=== PATIENT | male | born 1995 | race Caucasian/White ===

== ENCOUNTER 2018-05-19 14:45 | Emergency (ER) | payer SELFPAY ==
[~2018-05-19] VITALS: Ht 177.8 cm; Wt 77.1 kg
[2018-05-19 14:45] VITALS: BP 139/85
[2018-05-19] MEDS ORDERED: AZIT250T PO (15:22)
[2018-05-19] MEDS ORDERED: HYDR115S2 PO (15:22)
[2018-05-19] MEDS ORDERED: BENZ100C PO (15:22)
--- NOTE | 2018-05-19 15:22 | PHYS DOC ---
Past History Smoking: Cigarettes Adult General Chief Complaint Chief Complaint: SORE THROAT HPI HPI Patient is a 23 year old male who presents with complaining of sore throat. Patient complaining of sore throat or nasal congestion and sinus pain, nonproductive cough and fever up to 100 for the last 4 days and states he had sick contacts at his work. Patient denies diarrhea, vomiting, urinary symptoms, chest pain, focal neuro deficit. Review of Systems Review of Systems Constitutional: Reports fever[] Eyes: Denies change in visual acuity, redness, or eye pain [] HENT: Reports nasal congestion and sore throat Respiratory: Reports cough Cardiovascular: No additional information not addressed in HPI [] GI: Denies abdominal pain, nausea, vomiting, bloody stools or diarrhea [] : Denies dysuria or hematuria [] Musculoskeletal: Denies back pain or joint pain [] Integument: Denies rash or skin lesions [] Neurologic: Denies headache, focal weakness or sensory changes [] Endocrine: Denies polyuria or polydipsia [] All other systems were reviewed and found to be within normal limits, except as documented in this note. Physical Exam Physical Exam Constitutional: Well developed, well nourished, mild distress, non-toxic appearance. [] HENT: Normocephalic, atraumatic, bilateral external ears normal, oropharynx moist, pharyngeal erythema and mild erythema, no oral exudates, nose normal. [] Eyes: PERRLA, EOMI, conjunctiva normal, no discharge. [] Neck: Normal range of motion, no tenderness, supple, no stridor. [] Cardiovascular:Heart rate regular rhythm, no murmur [] Lungs & Thorax: Bilateral breath sounds clear to auscultation [] Abdomen: Bowel sounds normal, soft, no tenderness, no masses, no pulsatile masses. [] Skin: Warm, dry, no erythema, no rash. [] Back: No tenderness, no CVA tenderness. [] Extremities: No tenderness, no cyanosis, no clubbing, ROM intact, no edema. [] Neurologic: Alert and oriented X 3, normal motor function, normal sensory function, no focal deficits noted. [] Psychologic: Affect normal, judgement normal, mood normal. [] EKG EKG [] Radiology/Procedures Radiology/Procedures [] Course & Med Decision Making Course & Med Decision Making discharge: I've spoken with the patient and/or caregivers. I've explained the patient's condition, diagnosis and treatment plan based on information available to me at this time. I've answered the patient's and/or caregivers questions and addressed any concerns. The patient and/or caregivers have a good understanding the patient's diagnosis, condition and treatment plan as can be expected at this point. Vital signs have been stabilized. The patient's condition is stable for discharge from the emergency department. The patient will pursue further outpatient evaluation with her primary care provider or other designated consulting physician as outlined in the discharge instructions. Patient and/or caregivers are agreeable to this plan of care and follow-up instructions have been explained in detail. The patient and/or caregivers have received these instructions in written format and expressed understanding of these discharge instructions. The patient and her caregivers are aware that if any significant change in condition or worsening of symptoms should prompt him to immediately return to this of the closest emergency department. If an emergent department is not readily available I would encourage him to call 911. Analiaon Disclaimer Dragon Disclaimer This electronic medical record was generated, in whole or in part, using a voice recognition dictation system. Departure Departure: Impression: Primary Impression: Upper respiratory infection Additional Impressions: Tobacco abuse Tobacco abuse counseling Disposition: HOME, SELF-CARE (at 1518) Condition: STABLE Referrals: TANG ZAZUETA (PCP) Patient Instructions: Smoking Cessation, Tips For Success, Upper Respiratory Infection, Adult Additional Instructions: Drink plenty of liquids Follow-up with your primary care physician in 3-5 days Return to ER if not getting better Scripts Azithromycin (ZITHROMAX) 250 Mg Tablet 1 PKG PO UD for infection, #1 PKG Prov: CAROLINE REED MD 05/19/18 Hydrocodone/Chlorphen P-Stirex (Tussionex Pennkinetic Susp) 115 Ml Jillian.er.12h 5 ML PO BID for cough and congestion, #60 ML Prov: CAROLINE REED MD 05/19/18 Benzonatate (TESSALON PERLE) 100 Mg Capsule 1 CAP PO TID for cough, #21 CAP Prov: CARLOINE REED MD 05/19/18 Problem Qualifiers CAROLINE REED MD May 19, 2018 15:22
== END 2018-05-19 15:30 | disposition home or self-care (01) ==
LOC: ER 14:45
DX: J06.9 Acute upper respiratory infection, unspecified (principal); F17.210 Nicotine dependence, cigarettes, uncomplicated; Z71.6 Tobacco abuse counseling
CPT/HCPCS: 87070; 87880; 99283

== ENCOUNTER 2018-07-14 15:20 | Inpatient (IN) | payer SELFPAY ==
[~2018-07-14] VITALS: Ht 177.8 cm; Wt 85.4 kg
[~2018-07-14 15:20] MED LIST: AZIT250T PO; BENZ100C PO; HYDR115S2 PO
[2018-07-14] MEDS ORDERED: IV NORMAL SALINE 1,000ML 1,000 ML IV ONE (16:15)
[2018-07-14] MEDS ORDERED: ONDANSETRON PF 4 MG/2 ML VIAL. IV ONE (16:15)
--- NOTE | 2018-07-14 16:24 | PHYS DOC ---
Past History Past Medical History: No Pertinent History Past Surgical History: Cholecystectomy Smoking: Cigarettes Alcohol Use: Occasionally Drug Use: None Adult General Chief Complaint Chief Complaint: ABDOMINAL PAIN HPI HPI 23-year-old male presents with abdominal pain. The patient was in the shower and it an upper abdominal pain that was severe and sharp. He states that it hurt enough that it made him yell out in pain. His roommate was home and tried to help the patient. The pain subsided somewhat after several minutes. It is now , and gone multiple times. The patient had this happen about a year ago when he had a ruptured gallbladder. He had emergently removed at that time. He denies feeling ill recently. Denies fever or chills. He denies recent trauma Review of Systems Review of Systems Constitutional: Denies fever or chills [] Eyes: Denies change in visual acuity, redness, or eye pain [] HENT: Denies nasal congestion or sore throat [] Respiratory: Denies cough or shortness of breath [] Cardiovascular: No additional information not addressed in HPI [] GI: Abdominal pain [] : Denies dysuria or hematuria [] Musculoskeletal: Denies back pain or joint pain [] Integument: Denies rash or skin lesions [] Neurologic: Denies headache, focal weakness or sensory changes [] Endocrine: Denies polyuria or polydipsia [] All other systems were reviewed and found to be within normal limits, except as documented in this note. Current Medications Current Medications Current Medications Medications (Trade) Dose Ordered Sig/Orlin Start Time Stop Time Status Last Admin Dose Admin Ondansetron HCl (Zofran) 4 mg 1X ONCE 07/14/18 16:15 07/14/18 16:16 DC Sodium Chloride 1,000 ml @ 1,000 mls/hr 1X ONCE 07/14/18 16:15 07/14/18 17:14 Allergies Allergies Allergies Coded Allergies Type Severity Reaction Last Updated Verified No Known Drug Allergies 05/19/18 No Physical Exam Physical Exam Constitutional: Well developed, well nourished, no acute distress, non-toxic appearance. [] HENT: Normocephalic, atraumatic, bilateral external ears normal, oropharynx moist, no oral exudates, nose normal. [] Eyes: PERRLA, EOMI, conjunctiva normal, no discharge. [] Neck: Normal range of motion, no tenderness, supple, no stridor. [] Cardiovascular:Heart rate regular rhythm, no murmur [] Lungs & Thorax: Bilateral breath sounds clear to auscultation [] Abdomen: Bowel sounds normal, soft, mild tenderness epigastric area[] Skin: Warm, dry, no erythema, no rash. [] Back: No tenderness, no CVA tenderness. [] Extremities: No tenderness, no cyanosis, no clubbing, ROM intact, no edema. [] Neurologic: Alert and oriented X 3, normal motor function, normal sensory function, no focal deficits noted. [] Psychologic: Affect normal, judgement normal, mood normal. [] EKG EKG [] Radiology/Procedures Radiology/Procedures [] Impressions: CT ABD PELV W/ IV CONTRST ONLY Indication: Right upper quadrant abdominal pain, pancreatitis Technique: Postcontrast CT imaging was performed of the abdomen and pelvis, multiplanar reconstruction images submitted. No oral contrast was given. One or more of the following individualized dose reduction techniques were utilized for this examination: 1. Automated exposure control 2. Adjustment of the mA and/or kV according to patient size 3. Use of iterative reconstruction technique. Comparison: None Findings: There is no abnormality of the limited visualized lung bases. No focal abnormality is identified of the liver, spleen, pancreas. Gallbladder has been removed. Both kidneys enhance, no hydronephrosis. Evaluation of bowel is limited without oral contrast, no bowel dilatation, free fluid, free air. Normal appendix is visualized. Urinary bladder is somewhat distended. There are some scattered small retroperitoneal nodes, also mesenteric nodes with the largest about 1 cm short axis dimension in the right abdomen. IMPRESSION: 1. No significant acute abnormality is identified by CT. There has been cholecystectomy. Imaging findings of pancreatitis can be delayed relative to laboratory abnormality. There is no CT evidence of acute appendicitis. 2. Urinary bladder is somewhat distended. 3. There are nonspecific mesenteric nodes, largest considered borderline in size in the right abdomen. Electronically signed by: Sathya Doty MD (07/14/2018 6:36 PM) [facility] DICTATED AND SIGNED BY: SATHYA DOTY MD DATE: 07/14/18 1834 CC: NISH MENDOZA DO; PCP,NO Course & Med Decision Making Course & Med Decision Making Pertinent Labs and Imaging studies reviewed. (See chart for details) Patient's labs are significant for a lipase of 708. His CT scan is pending. Discussed the patient with Dr. Martinez and he has agreed to admit the patient for observation and trending of his lipase. [] Dragon Disclaimer Dragon Disclaimer This electronic medical record was generated, in whole or in part, using a voice recognition dictation system. Departure Departure: Impression: Primary Impression: Pancreatitis Disposition: ADMITTED INPATIENT Condition: STABLE Referrals: PCP,NO (PCP) Problem Qualifiers Primary Impression: Pancreatitis Chronicity: acute Pancreatitis type: unspecified pancreatitis type Acute pancreatitis complication: unspecified Qualified Codes: K85.90 - Acute pancreatitis without necrosis or infection, unspecified NISH MENDOZA DO Jul 14, 2018 16:24
[2018-07-14 16:28] LABS: BASO % 0 % (0-3); EOS % 0 % (0-3); HEMATOCRIT 45.6 % (39.0-53.0); HEMOGLOBIN 15.4 g/dL (13.0-17.5); LYMPH # 1.6 x10^3/uL (1.0-4.8); LYMPH % 9 % (24-48); MEAN CORPUSCULAR HEMOGLOBIN 31 pg (25-35); MEAN CORPUSCULAR HGB CONC 34 g/dL (31-37); MEAN CORPUSCULAR VOLUME 92 fL (79-100); MONO # 1.1 x10^3/uL (0.0-1.1); MONO % 7 % (0-9); NEUT % 84 % (31-73); PLATELET COUNT 378 x10^3/uL (140-400); RED BLOOD COUNT 4.97 x10^6/uL (4.30-5.70); RED CELL DISTRIBUTION WIDTH 12.9 % (11.5-14.5); WHITE BLOOD COUNT 16.7 x10^3/uL (4.0-11.0)
[2018-07-14] MEDS ORDERED: KETOROLAC 30 MG/ML VIAL. IV ONE (16:30)
[2018-07-14 16:44] LABS: ALBUMIN/GLOBULIN RATIO 0.9 (1.0-1.7); CALCIUM 9.1 mg/dL (8.5-10.1); CREATININE 0.9 mg/dL (0.7-1.3); GFR 106.5; POTASSIUM 3.7 mmol/L (3.5-5.1); TOTAL BILIRUBIN 0.7 mg/dL (0.2-1.0); TOTAL PROTEIN 8.7 g/dL (6.4-8.2)
[2018-07-14 17:14] LABS: BACTERIA,URINE 0 /HPF (0-FEW); BILIRUBIN,URINE NEG (NEG); CLARITY,URINE CLEAR; COLOR,URINE YELLOW; GLUCOSE,URINE NEG (NEG); NITRITE,URINE NEG (NEG); RBC,URINE RARE /HPF (0-2); UROBILINOGEN,URINE 0.2 mg/dL (0.2 mg/dL); WBC,URINE 0 /HPF (0-4)
[2018-07-14 17:17] LABS: % BANDS 2 % (0-9); % BASOS 0 % (0-3); % EOS 0 % (0-5); % LYMPHS 14 % (24-48); % MONOS 3 % (0-10); % SEGS 81 % (35-66); PLT ESTIMATE ADEQUATE (ADEQUATE)
[2018-07-14] MEDS ORDERED: IOHEXOL 300 MG/ML 75 ML VIAL. IV ONE (17:45)
[2018-07-14] MEDS ORDERED: MORPHINE SULFATE 2 MG/ML DISP.SYRIN. IV PRN (18:15)
[2018-07-14] MEDS ORDERED: IV DEXTROSE 10% 1,000 ML IV ONE (18:15)
[2018-07-14] MEDS ORDERED: ONDANSETRON PF 4 MG/2 ML VIAL. IV PRN (18:15)
[2018-07-14] MEDS ORDERED: ACETAMINOPHEN 325 MG TABLET PO PRN (18:15)
--- NOTE | 2018-07-14 18:39 | RAD ---
CT ABD PELV W/ IV CONTRST ONLY Indication: Right upper quadrant abdominal pain, pancreatitis Technique: Postcontrast CT imaging was performed of the abdomen and pelvis, multiplanar reconstruction images submitted. No oral contrast was given. One or more of the following individualized dose reduction techniques were utilized for this examination: 1. Automated exposure control 2. Adjustment of the mA and/or kV according to patient size 3. Use of iterative reconstruction technique. Comparison: None Findings: There is no abnormality of the limited visualized lung bases. No focal abnormality is identified of the liver, spleen, pancreas. Gallbladder has been removed. Both kidneys enhance, no hydronephrosis. Evaluation of bowel is limited without oral contrast, no bowel dilatation, free fluid, free air. Normal appendix is visualized. Urinary bladder is somewhat distended. There are some scattered small retroperitoneal nodes, also mesenteric nodes with the largest about 1 cm short axis dimension in the right abdomen. IMPRESSION: 1. No significant acute abnormality is identified by CT. There has been cholecystectomy. Imaging findings of pancreatitis can be delayed relative to laboratory abnormality. There is no CT evidence of acute appendicitis. 2. Urinary bladder is somewhat distended. 3. There are nonspecific mesenteric nodes, largest considered borderline in size in the right abdomen. Electronically signed by: Josué Coy MD (07/14/2018 6:36 PM) [facility]
[2018-07-14 19:34] VITALS: BP 140/80
[2018-07-14] MEDS: POTASSIUM CL 20MEQ D5-0.45NACL 1,000 ML IV SCH (20:44)
[2018-07-14] MEDS ORDERED: MORPHINE SULFATE 4 MG/ML DISP.SYRIN. IV PRN (21:30)
[2018-07-14 22:44] VITALS: BP 133/88
[2018-07-14] MEDS: NICOTINE 14MG PATCH. TD SCH (23:07)
[2018-07-15] MEDS: MORPHINE SULFATE 4 MG/ML DISP.SYRIN. IV PRN ×2 (04:49→09:52)
[2018-07-15 05:35] VITALS: BP 106/70
[2018-07-15 07:00] LABS: ALBUMIN 3.4 g/dL (3.4-5.0); ALBUMIN/GLOBULIN RATIO 0.8 (1.0-1.7); CALCIUM 8.6 mg/dL (8.5-10.1); CREATININE 0.8 mg/dL (0.7-1.3); POTASSIUM 3.8 mmol/L (3.5-5.1); TOTAL BILIRUBIN 0.7 mg/dL (0.2-1.0); TOTAL PROTEIN 7.5 g/dL (6.4-8.2)
[2018-07-15 07:01] LABS: BASO % 1 % (0-3); EOS # 0.1 x10^3/uL (0.0-0.7); EOS % 2 % (0-3); HEMATOCRIT 42.9 % (39.0-53.0); HEMOGLOBIN 14.5 g/dL (13.0-17.5); LYMPH # 1.9 x10^3/uL (1.0-4.8); LYMPH % 30 % (24-48); MEAN CORPUSCULAR HEMOGLOBIN 31 pg (25-35); MEAN CORPUSCULAR HGB CONC 34 g/dL (31-37); MEAN CORPUSCULAR VOLUME 93 fL (79-100); MONO # 0.6 x10^3/uL (0.0-1.1); MONO % 9 % (0-9); NEUT # 3.6 x10^3uL (1.8-7.7); NEUT % 58 % (31-73); PLATELET COUNT 341 x10^3/uL (140-400); RED BLOOD COUNT 4.64 x10^6/uL (4.30-5.70); RED CELL DISTRIBUTION WIDTH 12.9 % (11.5-14.5); WHITE BLOOD COUNT 6.2 x10^3/uL (4.0-11.0)
[2018-07-15] MEDS: NICOTINE 14MG PATCH. TD SCH (07:19)
[2018-07-15] MEDS: POTASSIUM CL 20MEQ D5-0.45NACL 1,000 ML IV SCH (07:19)
[2018-07-15 11:29] VITALS: BP 126/72
[2018-07-15 15:56] VITALS: BP 134/96
--- NOTE | 2018-07-15 16:25 | HP ---
ADMIT DATE: 07/14/2018 HISTORY OF PRESENT ILLNESS: The patient is a 23-year-old male patient who presented to the Emergency Room with abdominal pain. He apparently was in the shower and started complaining of severe sharp pain in his right upper quadrant. The pain was severe and his roommate was home and tried to help the patient. The pain subsided somewhat after several minutes and he stated that this type of pain happened about a year ago and at that time, his gallbladder was inflamed and has had Emergency and underwent an emergency cholecystectomy. He was evaluated in the Emergency Room and his serum amylase was slightly elevated at 706. He has also slightly elevated liver enzymes with an AST and ALT slightly elevated at 135 and 100. His white cell count was slightly elevated at 16,700. His urinalysis was essentially unremarkable. There was moderate amount of blood, negative for nitrite and leukocyte esterase. There are no RBCs, no WBCs. He has had a CT scan of the abdomen and pelvis, which showed that there is no abnormality in the limited visualized lung bases. No focal abnormality identified in the liver, spleen, pancreas; gallbladder has been removed. Both kidneys enhances with no hydronephrosis and the bowel evaluation was limited without oral contrast. No bowel dilatation or free fluid or free air. His appendix was normal. The urinary bladder is somewhat distended or some scattered small retroperitoneal nodes and also mesenteric nodes with the largest about 1 cm short axis dimension in the right abdomen. As he has slightly elevated lipase, decision was made to admit him for observation and was kept n.p.o. PAST MEDICAL HISTORY: Unremarkable. PAST SURGICAL HISTORY: Significant for bilateral myringotomy and cholecystectomy. ALLERGIES: He has no known drug allergies. MEDICATIONS: He is currently on no medication. FAMILY HISTORY: He has 1 younger brother and healthy and both parents are alive and healthy. SOCIAL HISTORY: Single; works in a restaurant; studying for degree of [employer]; smokes one half to one pack a day; drinks twice a week and he drinks half a bottle of whiskey. Denied any IV drug abuse. PHYSICAL EXAMINATION: GENERAL: On arrival to the Emergency Room, he looked well and was clearly in no apparent respiratory distress. No pallor, jaundice, cyanosis, or thyromegaly. No jugular venous distension. No lower limb edema. VITAL SIGNS: His heart rate was 76, blood pressure was 133/88, temperature was 98.4, respiratory rate was 18 and oxygen saturation was 98%. HEAD, EYES, EARS, NOSE, AND THROAT: Showed normocephalic, atraumatic. NECK: Supple. HEART: Showed normal first and second heart sounds. No gallop, rub or murmur. CHEST: Clear to auscultation. No crepitation or rhonchi. ABDOMEN: Distended, soft, tenderness mostly in the right upper quadrant. No guarding or rigidity. No organomegaly. All hernial orifices intact. Bowel sounds normal. NEUROLOGIC: He was awake, alert, responding appropriately. Cranial nerves are intact. EXTREMITIES: He moves extremities without difficulty. PSYCHOLOGIC: His affect and judgment as well as the mood was normal. ASSESSMENT AND PLAN: He was admitted with acute pancreatitis. He was started on IV fluid, IV pain medication and antiemetic. We will monitor him closely and repeat his labs in the morning and if normalized, we will start him on a clear liquid diet and advance as tolerated. OSCAR WARREN MD DR: MAN/gay JOB#: [id number] / [id number]
--- NOTE | 2018-07-15 19:52 | DS ---
DATE OF DISCHARGE: 07/15/2018 HOSPITAL COURSE: The patient is a 23-year-old male patient, who presented to Emergency Room with complaint of right upper quadrant pain. He was extensively investigated. His serum lipase was slightly elevated. His liver enzymes also slightly elevated. He was kept n.p.o. and his pain has largely subsided by the time I saw him. His lab work showed that his white cell count is down from 16,000 to 6200 and his serum lipase came down from 700 to 104. His liver enzymes were slightly elevated, AST of 135, ALT of 100 that came down to 51 and 81. His diet was advanced and he is tolerating his food without any difficulty and a decision was made to discharge him home. I have had a lengthy discussion about drinking alcohol all of his presentation is probably manifestation of alcohol abuse with pancreatitis as well as transaminitis. He smokes and also I leave it to that and he was counseled for that given his younger age and a decision was made to discharge him home. He is currently on no medication. PHYSICAL EXAMINATION: GENERAL: When I saw him this afternoon, he looked well and was clearly in no apparent respiratory distress. No pallor, jaundice, cyanosis, or thyromegaly. No jugular venous distension. No lower limb edema. VITAL SIGNS: His heart rate was 89, blood pressure 134/96, temperature was 98.5, respiratory rate 20 and oxygen saturation was 97% on room air. HEAD, EYES, EARS, NOSE AND THROAT: Showed normocephalic, atraumatic. NECK: Supple. HEART: Normal first and second heart sounds with no gallop, rub or murmur. CHEST: Clear to auscultation. No crepitation or rhonchi. ABDOMEN: Distended, soft, nontender. NEUROLOGIC: He is awake, alert, responding appropriately. EXTREMITIES: All cranial nerves intact. He moves extremities without difficulty. LABORATORY DATA: Showed a white cell count of 6200, hemoglobin 14.5, hematocrit 42, MCV 93 and platelet count of 341,000. His chemistry showed a serum sodium 142, potassium 3.8, chloride 104, bicarbonate 31, anion gap of 7, BUN 9, creatinine 0.8. Estimated GFR was 122 mL per minute. His glucose was 95, calcium was 8.6. Total bilirubin and alkaline phosphatase are normal. AST, ALT are slightly elevated, but trending down. His total protein was 7.5, albumin 3.4 and lipase was 104. FINAL DISCHARGE DIAGNOSES: Probably alcohol-induced pancreatitis and alcohol-induced transaminitis. OSCAR WARREN MD DR: MAN/gay JOB#: [id number] / [id number]
== END 2018-07-15 18:45 | disposition home or self-care (01) | DRG 440 ==
LOC: ER 15:20 → 1 SOUTH 18:11
PROVIDERS: ADMIT Internal Medicine; ATTEND Internal Medicine
DX: K85.20 Alcohol induced acute pancreatitis without necrosis or infection (principal); F17.210 Nicotine dependence, cigarettes, uncomplicated; F10.10 Alcohol abuse, uncomplicated; Z90.49 Acquired absence of other specified parts of digestive tract
CPT/HCPCS: 36415; 74177; 80053; 81001; 83690; 85007; 85025; 96374; J1885; J2270; J2405; Q9967; 99285-25; J7030

== ENCOUNTER 2019-04-07 09:50 | Emergency (ER) | payer OTHER ==
[~2019-04-07] VITALS: Ht 177.8 cm; Wt 85.3 kg
[2019-04-07] MEDS ORDERED: ONDANSETRON PF 4 MG/2 ML VIAL. IVP ONE (10:30)
[2019-04-07 10:42] LABS: BASO % 0 % (0-3); EOS # 0.1 x10^3/uL (0.0-0.7); EOS % 1 % (0-3); HEMOGLOBIN 15.7 g/dL (13.0-17.5); LYMPH # 1.4 x10^3/uL (1.0-4.8); LYMPH % 18 % (24-48); MEAN CORPUSCULAR HEMOGLOBIN 31 pg (25-35); MEAN CORPUSCULAR HGB CONC 34 g/dL (31-37); MEAN CORPUSCULAR VOLUME 91 fL (79-100); MONO # 0.7 x10^3/uL (0.0-1.1); MONO % 9 % (0-9); NEUT # 5.7 x10^3uL (1.8-7.7); NEUT % 72 % (31-73); PLATELET COUNT 367 x10^3/uL (140-400); RED BLOOD COUNT 5.07 x10^6/uL (4.30-5.70); RED CELL DISTRIBUTION WIDTH 12.9 % (11.5-14.5); WHITE BLOOD COUNT 7.9 x10^3/uL (4.0-11.0)
[2019-04-07] MEDS ORDERED: IOHEXOL 300 MG/ML 75 ML VIAL. IV ONE (10:45)
[2019-04-07 10:57] LABS: ALBUMIN 3.9 g/dL (3.4-5.0); ALBUMIN/GLOBULIN RATIO 0.9 (1.0-1.7); CALCIUM 9.1 mg/dL (8.5-10.1); GFR 93.4; POTASSIUM 4.1 mmol/L (3.5-5.1); TOTAL BILIRUBIN 0.4 mg/dL (0.2-1.0); TOTAL PROTEIN 8.4 g/dL (6.4-8.2)
[2019-04-07] MEDS ORDERED: MORPHINE SULFATE 4 MG/ML DISP.SYRIN. ONE (11:31)
[2019-04-07] MEDS ORDERED: MORPHINE SULFATE 10 MG/ML SYRINGE. IV ONE (11:45)
[2019-04-07] MEDS ORDERED: MORPHINE SULFATE 4 MG/ML DISP.SYRIN. IV ONE (11:45)
--- NOTE | 2019-04-07 11:47 | RAD ---
CT HEAD AND CERVICAL SPINE WO Indication: Fall from 20 feet. Exposure: One or more of the following individualized dose reduction techniques were utilized for this examination: 1. Automated exposure control 2. Adjustment of the mA and/or kV according to patient size 3. Use of iterative reconstruction technique. Technique: Standard imaging without intravenous contrast. Head: No evidence of acute infarct cranial hemorrhage, mass effect, midline shift or abnormal extra-axial fluid collection. Tamayo-white matter distinction is intact. Ventricles and sulci are symmetric. Orbits appear unremarkable. No large scalp hematoma. Partially visualized sinuses are clear. Mastoids and auditory canals are clear. IMPRESSION: No evidence of acute intracranial hemorrhage. Cervical spine: Visualized skull base appears grossly intact. Ring of C1 is intact. Cervico-occipital junction is intact. C1 and C2 relationship is symmetric. Vertebral body height is intact. No evidence of acute fracture. No bone destruction. No significant facet joint widening or locked facet joint. Disc spaces are maintained. No evidence of significant subluxation. Prevertebral soft tissues demonstrate no significant swelling or hematoma. No evidence of thyroid mass. Lung apices are grossly clear. Note there is some prominence of adenoidal tissue and sublingual tonsil. Nonspecific, this could be reactive or inflammatory. IMPRESSION: 1. No evidence of acute fracture or subluxation. 2. Question mild tonsillar enlargement. Electronically signed by: Fausto Castillo MD (04/07/2019 11:24 AM) [id number]
[2019-04-07] MEDS ORDERED: IV NORMAL SALINE 1,000ML 1,000 ML IV ONE (12:00)
--- NOTE | 2019-04-07 12:27 | RAD ---
CT THORACIC SPINE WO CONTRAST, CT LUMBAR SPINE WO CONTRAST, CT CHEST ABD PELVIS W/CONTRAST Indication: Fall from 20 feet Technique: Postcontrast CT imaging was performed of the chest, abdomen, pelvis, multiplanar reconstruction images submitted. Noncontrast CT imaging was performed of the thoracic and lumbar spine. One or more of the following individualized dose reduction techniques were utilized for this examination: 1. Automated exposure control 2. Adjustment of the mA and/or kV according to patient size 3. Use of iterative reconstruction technique. Comparison: July 14, 2017 CT abdomen pelvis exam, no previous chest exam available CHEST: Findings: There is no pneumothorax, pleural or pericardial effusion, infiltrate, evidence of pulmonary contusion. Major airways are patent. Thoracic aortic caliber is within normal limits without intraluminal flap or adjacent fluid collection/hematoma. No displaced acute rib fracture is identified. IMPRESSION: 1. No acute abnormality is identified of the chest. Abdomen pelvis FINDINGS: No acute abnormality is identified of the liver, spleen, pancreas. There is no adrenal nodularity. There has been cholecystectomy. Both kidneys enhance, no hydronephrosis or adjacent fluid collection. Accurate evaluation of bowel is limited without oral contrast. Bowel is not significantly dilated. There is no free fluid or free air. There are again several nonspecific mesenteric nodes, largest right lower quadrant about 1.3 cm short axis dimension although present previously, very slightly larger as previously about 1.1 cm short axis dimension. IMPRESSION: 1. No acute abnormality is identified of the abdomen or pelvis. 2. There are again several nonspecific mesenteric nodes, dominant right lower quadrant mesenteric node very slightly larger than previously. Thoracic spine FINDINGS: Thoracic vertebral body stature and AP alignment are maintained. There is no significant osseous thoracic spinal stenosis. No acute thoracic spine fracture is identified. There is mild superior thoracic levoscoliosis. IMPRESSION: 1. No acute thoracic spine fracture is identified. Lumbar spine FINDINGS: Lumbar vertebral body stature and AP alignment are maintained. No acute lumbar spine fracture is identified. There is some sclerosis of the bilateral iliac bones near the sacroiliac joints bilaterally, partial fusion of the sacroiliac joints. There is also mild sclerosis of the lateral aspects of the bilateral sacrum near the sacroiliac joints. IMPRESSION: 1. No acute lumbar spine fracture is identified. 2. There is some sclerosis about the sacroiliac joints bilaterally with partial fusion of the sacroiliac joints, evidence of sacroiliitis. Electronically signed by: Josué Coy MD (04/07/2019 12:24 PM) [id number]
--- NOTE | 2019-04-07 12:33 | RAD ---
ANKLE RIGHT 3V, TIBIA FIBULA RIGHT, RIGHT FEMUR XRAY, FOOT RIGHT 3V History: Fall from 20 feet. Three-view right ankle No evidence of acute fracture. Joint spaces are intact. Soft tissues appear intact. 3 view right foot True lateral images was not obtained. No evidence of acute fracture or dislocation on the obtained images. No definite soft tissue abnormality. Two-view right tibia fibula No evidence of acute fracture. No aggressive bone destruction. Two-view right femur Mild spurring or cortical protuberance at the lateral right femoral head and neck junction, finding which could be degenerative or could predispose to femoroacetabular impingement. No evidence of acute fracture. No aggressive bone destruction. Visualized joint spaces appear grossly intact. No significant soft tissue abnormality. IMPRESSION: No evidence of acute fracture or dislocation. Electronically signed by: Fausto Castillo MD (04/07/2019 12:30 PM) [id number]
[2019-04-07] MEDS ORDERED: ORPH-16 PO (13:06)
[2019-04-07] MEDS ORDERED: DICL50TA4 PO (13:06)
[2019-04-07] MEDS ORDERED: TRAM50TA PO (13:06)
--- NOTE | 2019-04-07 13:07 | PHYS DOC ---
Past History Past Medical History: No Pertinent History Past Surgical History: Cholecystectomy Smoking: Cigarettes Alcohol Use: Occasionally Drug Use: None Adult General Chief Complaint Chief Complaint: MULTIPLE TRAUMA/FALL [facility] HPI Patient is a 24-year-old male who presents with complaint of pain in his mid t horacic region as well as lower back and right foot after reportedly falling approximately 20 feet from a deer stand last night. Patient states that he was turning around in the deer stand getting ready to climb down when he misstepped and fell backwards, landing on his feet and then rolling back and striking his back. He denies any loss of consciousness. He states that initially he had pain and was not able to get up unassisted. Patient's brother reportedly found him approximately an hour later lying on the ground. Patient then went home and patient states that he drank some alcohol in order to sleep last night. He states that this morning he woke up with his girlfriend and he was unable to get out of bed. At this point he states that he felt that he should come in to the emergency room for further evaluation. Patient does indicate that he was able to urinate this morning. He denies any loss of bowel or bladder control. He also denies any saddle anesthesia. Patient rates his pain at an 8 out of 10. Patient does indicate that he's had some intermittent tingling to his arms and his legs since the fall.[] Review of Systems Review of Systems Constitutional: Denies fever or chills [] Respiratory: Denies cough or shortness of breath [] Cardiovascular: No additional information not addressed in HPI [] GI: Denies abdominal pain, nausea, vomiting or diarrhea [] : Denies dysuria or hematuria [] Musculoskeletal: Complains of lower back and mid thoracic back pain and right heel pain [] Integument: Denies rash or skin lesions [] Neurologic: Denies headache, focal weakness. Patient does complain of some intermittent paresthesia to both arms and both legs. [] All other systems were reviewed and found to be within normal limits, except as documented in this note. Current Medications Current Medications Current Medications Medications (Trade) Dose Ordered Sig/Orlin Start Time Stop Time Status Last Admin Dose Admin Fentanyl Citrate (Fentanyl 2ml Vial) 50 mcg PRN Q15MIN PRN 04/07/19 10:30 04/08/19 10:29 04/07/19 10:31 50 MCG Iohexol (Omnipaque 300 Mg/ml) 75 ml 1X ONCE 04/07/19 10:45 04/07/19 10:46 DC 04/07/19 10:52 75 ML Morphine Sulfate (Morphine 10mg Syringe) 5 mg 1X ONCE 04/07/19 11:45 04/07/19 11:41 DC Morphine Sulfate (Morphine 4mg Syringe) 4 mg 1X ONCE 04/07/19 11:45 04/07/19 11:46 DC 04/07/19 11:41 4 MG Ondansetron HCl (Zofran) 4 mg 1X ONCE 04/07/19 10:30 04/07/19 10:31 DC 04/07/19 10:31 4 MG Sodium Chloride 1,000 ml @ 1,000 mls/hr 1X ONCE 04/07/19 12:00 04/07/19 12:59 04/07/19 11:56 1,000 MLS/HR Allergies Allergies Allergies Coded Allergies Type Severity Reaction Last Updated Verified No Known Drug Allergies 05/19/18 No Physical Exam Physical Exam Constitutional: Well developed, well nourished, no acute distress, non-toxic appearance. [] HENT: Normocephalic, atraumatic, bilateral external ears normal, oropharynx moist, no oral exudates, nose normal. [] Eyes: PERRLA, EOMI, conjunctiva normal, no discharge. [] Neck: Patient placed in c-collar by ER nurse prior to my evaluation. [] Cardiovascular: Regular rate and rhythm[] Lungs & Thorax: Bilateral breath sounds clear to auscultation [] Abdomen: Bowel sounds normal, soft, with reported right upper abdominal tenderness. Palpation over the right ASIS elicited tenderness. [] Skin: Warm, dry, no erythema, no rash. [] Back: Patient reports to tenderness to palpation throughout the lumbar spine as well as the mid thoracic spine, primarily in the shoulder blade region. No external signs of trauma are noted. [] Extremities: Examination of the right foot demonstrates tenderness to palpation over the calcaneus but no soft tissue swelling or ecchymosis is noted. Remainder of extremity exam is unremarkable. [] Neurologic: Alert and oriented X 3, normal motor function, normal sensory function, no focal deficits noted. [] Current Patient Data Vital Signs Vital Signs Date Time Temp Pulse Resp B/P (MAP) Pulse Ox O2 Delivery O2 Flow Rate FiO2 04/07/19 12:40 91 16 141/85 (103) 95 Room Air 04/07/19 09:55 98.0 Lab Results Laboratory Tests Test 04/07/19 10:24 White Blood Count 7.9 x10^3/uL (4.0-11.0) Red Blood Count 5.07 x10^6/uL (4.30-5.70) Hemoglobin 15.7 g/dL (13.0-17.5) Hematocrit 46.0 % (39.0-53.0) Mean Corpuscular Volume 91 fL (79-100) Mean Corpuscular Hemoglobin 31 pg (25-35) Mean Corpuscular Hemoglobin Concent 34 g/dL (31-37) Red Cell Distribution Width 12.9 % (11.5-14.5) Platelet Count 367 x10^3/uL (140-400) Neutrophils (%) (Auto) 72 % (31-73) Lymphocytes (%) (Auto) 18 % (24-48) L Monocytes (%) (Auto) 9 % (0-9) Eosinophils (%) (Auto) 1 % (0-3) Basophils (%) (Auto) 0 % (0-3) Neutrophils # (Auto) 5.7 x10^3uL (1.8-7.7) Lymphocytes # (Auto) 1.4 x10^3/uL (1.0-4.8) Monocytes # (Auto) 0.7 x10^3/uL (0.0-1.1) Eosinophils # (Auto) 0.1 x10^3/uL (0.0-0.7) Basophils # (Auto) 0.0 x10^3/uL (0.0-0.2) Prothrombin Time 10.1 SEC (9.4-11.4) Prothrombin Time INR 1.0 (0.9-1.1) Activated Partial Thromboplast Time 28 SEC (23-33) Sodium Level 144 mmol/L (136-145) Potassium Level 4.1 mmol/L (3.5-5.1) Chloride Level 105 mmol/L (98-107) Carbon Dioxide Level 26 mmol/L (21-32) Anion Gap 13 (6-14) Blood Urea Nitrogen 13 mg/dL (8-26) Creatinine 1.0 mg/dL (0.7-1.3) Estimated GFR (Cockcroft-Gault) 93.4 BUN/Creatinine Ratio 13 (6-20) Glucose Level 94 mg/dL (70-99) Calcium Level 9.1 mg/dL (8.5-10.1) Total Bilirubin 0.4 mg/dL (0.2-1.0) Aspartate Amino Transferase (AST) 18 U/L (15-37) Alanine Aminotransferase (ALT) 40 U/L (16-63) Alkaline Phosphatase 74 U/L (46-116) Creatine Kinase 107 U/L (39-308) Total Protein 8.4 g/dL (6.4-8.2) H Albumin 3.9 g/dL (3.4-5.0) Albumin/Globulin Ratio 0.9 (1.0-1.7) L Ethyl Alcohol Level < 10 mg/dL (0-10) EKG EKG [] Radiology/Procedures Radiology/Procedures [] Impressions: CT HEAD AND CERVICAL SPINE WO Indication: Fall from 20 feet. Exposure: One or more of the following individualized dose reduction techniques were utilized for this examination: 1. Automated exposure control 2. Adjustment of the mA and/or kV according to patient size 3. Use of iterative reconstruction technique. Technique: Standard imaging without intravenous contrast. Head: No evidence of acute infarct cranial hemorrhage, mass effect, midline shift or abnormal extra-axial fluid collection. Tamayo-white matter distinction is intact. Ventricles and sulci are symmetric. Orbits appear unremarkable. No large scalp hematoma. Partially visualized sinuses are clear. Mastoids and auditory canals are clear. IMPRESSION: No evidence of acute intracranial hemorrhage. Cervical spine: Visualized skull base appears grossly intact. Ring of C1 is intact. Cervico-occipital junction is intact. C1 and C2 relationship is symmetric. Vertebral body height is intact. No evidence of acute fracture. No bone destruction. No significant facet joint widening or locked facet joint. Disc spaces are maintained. No evidence of significant subluxation. Prevertebral soft tissues demonstrate no significant swelling or hematoma. No evidence of thyroid mass. Lung apices are grossly clear. Note there is some prominence of adenoidal tissue and sublingual tonsil. Nonspecific, this could be reactive or inflammatory. IMPRESSION: 1. No evidence of acute fracture or subluxation. 2. Question mild tonsillar enlargement. Electronically signed by: Fausto Castillo MD (04/07/2019 11:24 AM) [facility] PROCEDURE: CT LUMBAR SPINE WO CONTRAST CT THORACIC SPINE WO CONTRAST, CT LUMBAR SPINE WO CONTRAST, CT CHEST ABD PELVIS W/CONTRAST Indication: Fall from 20 feet Technique: Postcontrast CT imaging was performed of the chest, abdomen, pelvis, multiplanar reconstruction images submitted. Noncontrast CT imaging was performed of the thoracic and lumbar spine. One or more of the following individualized dose reduction techniques were utilized for this examination: 1. Automated exposure control 2. Adjustment of the mA and/or kV according to patient size 3. Use of iterative reconstruction technique. Comparison: July 14, 2017 CT abdomen pelvis exam, no previous chest exam available CHEST: Findings: There is no pneumothorax, pleural or pericardial effusion, infiltrate, evidence of pulmonary contusion. Major airways are patent. Thoracic aortic caliber is within normal limits without intraluminal flap or adjacent fluid collection/hematoma. No displaced acute rib fracture is identified. IMPRESSION: 1. No acute abnormality is identified of the chest. Abdomen pelvis FINDINGS: No acute abnormality is identified of the liver, spleen, pancreas. There is no adrenal nodularity. There has been cholecystectomy. Both kidneys enhance, no hydronephrosis or adjacent fluid collection. Accurate evaluation of bowel is limited without oral contrast. Bowel is not significantly dilated. There is no free fluid or free air. There are again several nonspecific mesenteric nodes, largest right lower quadrant about 1.3 cm short axis dimension although present previously, very slightly larger as previously about 1.1 cm short axis dimension. IMPRESSION: 1. No acute abnormality is identified of the abdomen or pelvis. 2. There are again several nonspecific mesenteric nodes, dominant right lower quadrant mesenteric node very slightly larger than previously. Thoracic spine FINDINGS: Thoracic vertebral body stature and AP alignment are maintained. There is no significant osseous thoracic spinal stenosis. No acute thoracic spine fracture is identified. There is mild superior thoracic levoscoliosis. IMPRESSION: 1. No acute thoracic spine fracture is identified. Lumbar spine FINDINGS: Lumbar vertebral body stature and AP alignment are maintained. No acute lumbar spine fracture is identified. There is some sclerosis of the bilateral iliac bones near the sacroiliac joints bilaterally, partial fusion of the sacroiliac joints. There is also mild sclerosis of the lateral aspects of the bilateral sacrum near the sacroiliac joints. IMPRESSION: 1. No acute lumbar spine fracture is identified. 2. There is some sclerosis about the sacroiliac joints bilaterally with partial fusion of the sacroiliac joints, evidence of sacroiliitis. Electronically signed by: Sathya Doty MD (04/07/2019 12:24 PM) [facility] DICTATED AND SIGNED BY: SATHYA DOTY MD DATE: 04/07/19 1224 CC: ESME AYOUB Jr. DO; PCP,NO ~ Course & Med Decision Making Course & Med Decision Making Pertinent Labs and Imaging studies reviewed. (See chart for details) [] Dragon Disclaimer Dragon Disclaimer This electronic medical record was generated, in whole or in part, using a voice recognition dictation system. Departure Departure: Impression: Primary Impression: Contusion of lower back Additional Impressions: Strain, dorsal Contusion of right heel Disposition: 01 HOME, SELF-CARE Condition: STABLE Referrals: PCP,NO (PCP) Patient Instructions: Back Pain in , Contusion, Foot Contusion Scripts Diclofenac Sodium (DICLOFENAC SODIUM) 50 Mg Tablet.dr 1 TAB PO BID PRN for PAIN, #20 TAB Prov: ESME AYOUB Jr. DO 04/07/19 Orphenadrine Citrate (ORPHENADRINE CITRATE) 100 Mg Tablet.er 1 TAB PO BID PRN for MUSCLE SPASMS, #14 TAB Prov: ESME AYOUB Jr. DO 04/07/19 Tramadol Hcl (TRAMADOL HCL) 50 Mg Tablet 50 MG PO PRN Q6HRS PRN for PAIN, #12 TAB Prov: ESME AYOUB Jr. DO 04/07/19 Problem Qualifiers Primary Impression: Contusion of lower back Encounter type: initial encounter Qualified Codes: S30.0XXA - Contusion of lower back and pelvis, initial encounter Additional Impressions: Contusion of right heel Encounter type: initial encounter Qualified Codes: S90.31XA - Contusion of right foot, initial encounter ESME AYOUB Jr., DO Apr 07, 2019 13:07
[2019-04-07 13:08] VITALS: BP 139/92
== END 2019-04-07 13:18 | disposition home or self-care (01) ==
LOC: ER 09:50
DX: S29.012A Strain of muscle and tendon of back wall of thorax, initial encounter (principal); S30.0XXA Contusion of lower back and pelvis, initial encounter; S90.31XA Contusion of right foot, initial encounter; F17.210 Nicotine dependence, cigarettes, uncomplicated; Z90.49 Acquired absence of other specified parts of digestive tract; W17.89XA Other fall from one level to another, initial encounter; Y93.89 Activity, other specified; Y92.89 Other specified places as the place of occurrence of the external cause; Y99.8 Other external cause status
CPT/HCPCS: 36415; 70450; 71260; 72125; 72128; 72131; 73552; 73590; 73610; 73630; 74177; 80053; 82550; 85025; 85610; 85730; 96374; 96375; 99285; G0480; J2270; J2405; J3010; Q9967; J7030

== ENCOUNTER 2019-10-19 01:27 | Emergency (ER) | payer SELFPAY ==
[~2019-10-19] VITALS: Ht 177.8 cm; Wt 84.5 kg
[~2019-10-19 01:27] MED LIST changes: +DICL50TA4 PO; +ORPH-16 PO; +TRAM50TA PO
--- NOTE | 2019-10-19 01:32 | PHYS DOC ---
Past History Past Medical History: No Pertinent History Past Surgical History: Cholecystectomy Smoking: Cigarettes Alcohol Use: Occasionally Drug Use: None General Adult EDM: Chief Complaint: HAND PROBLEM HPI: HPI: " I was helping my brother tear down a shelf.. and the sledge hammer fell and hit my Lt. hand..." Patient is a 24 year old male who presents with above hx and complaints of hand contusion injury. Pt. localized to 4 and 5 Rt. fingers proximal joints dorsal. Motion of joints increases pain. Patient is left-hand dominant. Distal neurovascular equal to right hand. Patient states injury happened approximately 1 hour ago. Patient denies any other health history. Patient is driving self. Patient denies any recent travel outside [facility]. Has been in with brother who works in [employer]. Review of Systems: Review of Systems: Constitutional: Denies fever or chills Eyes: Denies change in visual acuity HENT: Denies nasal congestion or sore throat Respiratory: Denies cough or shortness of breath Cardiovascular: Denies chest pain or edema GI: Denies abdominal pain, nausea, vomiting, bloody stools or diarrhea : Denies dysuria Musculoskeletal: Denies back pain or joint pain Integument: Denies rash Neurologic: Denies headache, focal weakness or sensory changes Endocrine: Denies polyuria or polydipsia Lymphatic: Denies swollen glands Psychiatric: Denies depression or anxiety Heart Score: Risk Factors: Risk Factors: DM, Current or recent (<one month) smoker, HTN, HLP, family history of CAD, obesity. Risk Scores: Score 0 - 3: 2.5% MACE over next 6 weeks - Discharge Home Score 4 - 6: 20.3% MACE over next 6 weeks - Admit for Clinical Observation Score 7 - 10: 72.7% MACE over next 6 weeks - Early Invasive Strategies Family History: Family History: Noncontributory Current Medications: Current Meds: See nursing for home meds Allergies: Allergies: Allergies Coded Allergies Type Severity Reaction Last Updated Verified No Known Drug Allergies 05/19/18 No Physical Exam: PE: Constitutional: Well developed, well nourished, moderated acute distress, non- toxic appearance. [] HENT: Normocephalic, atraumatic, bilateral external ears normal, oropharynx moist, no oral exudates, nose normal. [] Eyes: PERRLA, EOMI, conjunctiva normal, no discharge. [] Neck: Normal range of motion, no tenderness, supple, no stridor. [] Cardiovascular:Heart rate regular rhythm, no murmur [] Lungs & Thorax: Bilateral breath sounds equal apex with few scattered wheezes on auscultation [] Abdomen: Bowel sounds normal, soft, no tenderness, no masses, no pulsatile masses. [] Skin: Warm, dry, no erythema, no rash. [] Back: No tenderness, no CVA tenderness. [] Extremities: No tenderness, no cyanosis, no clubbing, ROM intact, no edema. [] Except findings and right hand as per HPI Neurologic: Alert and oriented X 3, normal motor function, normal sensory function, no focal deficits noted. [] Psychologic: Affect anxious, judgement normal, mood normal. [] EKG: EKG: [] Radiology/Procedures: Radiology/Procedures: [] Course & Med Decision Making: Course & Med Decision Making Pertinent Labs and Imaging studies reviewed. (See chart for details). Patient to ice packs as needed. Wear splint. Take Tylenol and ibuprofen for pain. Follow-up primary care. Return if any concerns. Distal neurovascular intact after splint. Re-xray in 2 weeks if rod mill tender. Impression: 1. Contusion Injury to Rt hand - Proximal finger joints 4 and 5 dorsal [] Dragon Disclaimer: Dragon Disclaimer: This electronic medical record was generated, in whole or in part, using a voice recognition dictation system. Departure Departure: Disposition: 01 HOME/RESIDENCE PRIOR TO ADM Condition: STABLE Referrals: PCP,NO (PCP) Justification of Admission: Justification of Admission: Justification of Admission Dx: N/A Dragon Disclaimer This chart was dictated in whole or in part using Voice Recognition software in a busy, high-work load, and often noisy Emergency Department environment. It may contain unintended and wholly unrecognized errors or omissions. Dragon Disclaimer This chart was dictated in whole or in part using Voice Recognition software in a busy, high-work load, and often noisy Emergency Department environment. It may contain unintended and wholly unrecognized errors or omissions. Dragon Disclaimer This chart was dictated in whole or in part using Voice Recognition software in a busy, high-work load, and often noisy Emergency Department environment. It may contain unintended and wholly unrecognized errors or omissions. MARLEN SCHUMACHER MD Oct 19, 2019 01:32
[2019-10-19] MEDS ORDERED: IBUPROFEN 600 MG TABLET. PO ONE (02:30)
--- NOTE | 2019-10-19 04:43 | RAD ---
INDICATION: Reason: hand hit with sledge hammer, MEDIAL HAND 5TH FINGER. X 1 HOUR / Spl. Instructions: / History: COMPARISON: None. IMPRESSION: Right hand: 3 views obtained. No definite acute fracture or dislocation. Lucency at distal radius is likely secondary to growth plate. Electronically signed by: Lex Dyer MD (10/19/2019 4:40 AM) [id number]
== END 2019-10-19 02:20 | disposition home or self-care (01) ==
LOC: ER 01:27
DX: S60.041A Contusion of right ring finger without damage to nail, initial encounter (principal); S60.051A Contusion of right little finger without damage to nail, initial encounter; F17.210 Nicotine dependence, cigarettes, uncomplicated; W20.8XXA Other cause of strike by thrown, projected or falling object, initial encounter; Y93.89 Activity, other specified; Y92.89 Other specified places as the place of occurrence of the external cause; Y99.8 Other external cause status
CPT/HCPCS: 73130; 99283